=== PATIENT | female | born 1960 | race Caucasian/White ===

== ENCOUNTER 2019-03-03 14:32 | Emergency (ER) | payer OTHER ==
[~2019-03-03] VITALS: Ht 167.6 cm; Wt 80.3 kg
[2019-03-03 15:00] LABS: Basophils # (auto) 0.1 uL; Basophils % (auto) 0.8 % (0.0-2.0); Eosinophils # (auto) 0.2 uL; Eosinophils % (auto) 2.6 % (0.0-7.0); Hemoglobin 13.6 g/dL (12.2-16.2); Lymphocytes # (auto) 1.8 uL; Lymphocytes % (auto) 28.6 % (10.0-50.0); Mean Corpuscular Hemoglobin 30.1 pg (28.0-32.0); Mean Corpuscular Volume 88.5 fL (80.0-100.0); Monocytes # (auto) 0.7 uL; Monocytes % (auto) 11.5 % (0.0-12.0); Neutrophils # (auto) 3.5 uL; Neutrophils % (auto) 56.5 % (37.0-80.0); Platelet Count (auto) 154 10^3/uL (140-450); Red Blood Cells 4.52 10^6/uL (4.0-5.20); Red Cell Distribution Width 13.1 % (11.8-14.3); White Blood Cell 6.2 10^3/uL (4.4-10.8)
[2019-03-03 15:07] VITALS: BP 136/73
[2019-03-03 15:17] LABS: Albumin 3.3 g/dL (3.4-5.0); Anion Gap 6 (5-15); Blood Urea Nitrogen 18 mg/dL (7-18); Calcium 8.8 mg/dL (8.5-10.1); Carbon Dioxide 27 mmol/L (21-32); Chloride 108 mmol/L (98-107); Glucose 138 mg/dL (74-106); Magnesium 2.6 mg/dL (1.6-2.6); Potassium 3.9 mmol/L (3.5-5.1); Sodium 141 mmol/L (136-145)
[2019-03-03 15:23] LABS: Alanine Aminotransferase 20 U/L (13-56); Alkaline Phosphatase 84 U/L (45-117); Aspartate Aminotransferase 11 U/L (15-37); Bilirubin, Total 0.4 mg/dL (0.2-1.0); GFR African American 91 mL/min; GFR Non-African American 75 mL/min; Total Protein 6.5 g/dL (6.4-8.2)
== END 2019-03-03 17:09 | disposition home or self-care (01) ==
LOC: EDBD 14:32 → ER 14:37
DX: R55 Syncope and collapse (principal); I10 Essential (primary) hypertension; Z88.2 Allergy status to sulfonamides
CPT/HCPCS: 36415; 70450; 80053; 83735; 84484; 85025; 93005